=== PATIENT | female | born 1950 ===

== ENCOUNTER 2020-04-11 20:31 | Outpatient (REF) | payer MEDICARE, SELFPAY ==
[2020-04-11 21:07] LABS: Anion Gap 10.6 mmol/L (3-11); BUN 15 mg/dL (7-18); CO2 24.4 mmol/L (21.0-32.0); CREATININE 1.34 mg/dL (0.55-1.02); Calcium 8.4 mg/dL (8.5-10.1); Chloride 99 mmol/L (98-107); Estimated GFR 39.22 (mL/min/1.73m2); Glucose 219 mg/dL (74-106); Potassium 3.5 mmol/L (3.5-5.1); Sodium 134 mmol/L (136-145)
[2020-04-11 21:22] LABS: Calculated LDL 67 mg/dL (<100); Cholesterol 111 mg/dL (<200); HDL Cholesterol 25 mg/dL (40-60); Triglyceride 95 mg/dL (<150)
== END 2020-04-11 20:51 ==
LOC: LBN 20:31
PROVIDERS: Visit Provider Family Medicine
DX: E11.9 Type 2 diabetes mellitus without complications (principal); I10 Essential (primary) hypertension; J44.9 Chronic obstructive pulmonary disease, unspecified
CPT/HCPCS: 80048; 80061

== ENCOUNTER 2020-05-16 20:51 | Outpatient (REF) | payer MEDICARE, SELFPAY ==
[2020-05-16 20:57] LABS: BUN 14 mg/dL (7-18); CREATININE 1.26 mg/dL (0.55-1.02); Calcium 8.4 mg/dL (8.5-10.1); Chloride 104 mmol/L (98-107); Estimated GFR 41.98 (mL/min/1.73m2); Glucose 234 mg/dL (74-106); Magnesium 1.7 mg/dL (1.8-2.4); Potassium 4.4 mmol/L (3.5-5.1); Sodium 135 mmol/L (136-145)
== END 2020-05-16 21:11 ==
LOC: LBN 20:51
PROVIDERS: Visit Provider Family Medicine
DX: I10 Essential (primary) hypertension (principal); E11.9 Type 2 diabetes mellitus without complications; J44.9 Chronic obstructive pulmonary disease, unspecified
CPT/HCPCS: 80048; 83735